=== PATIENT | male | born 2000 | race Caucasian/White ===

== ENCOUNTER → 2024-02-11 | Outpatient (CLI) | payer MEDICAID, OTHER | END | disposition home or self-care (01) | LOC: MRI02 14:50 | PROVIDERS: ATTEND Family Medicine Sports Medicine | DX: M25.562 Pain in left knee (principal); T84.89XA Other specified complication of internal orthopedic prosthetic devices, implants and grafts, initial encounter; Y84.8 Other medical procedures as the cause of abnormal reaction of the patient, or of later complication, without mention of misadventure at the time of the procedure; Y92.89 Other specified places as the place of occurrence of the external cause | CPT/HCPCS: 73721 ==